=== PATIENT | male | born 1955 | race Caucasian/White ===

== ENCOUNTER 2019-11-03 19:47 | Emergency (ER) | payer SELFPAY ==
[~2019-11-03 19:47] MED LIST: AMIODARONE HCL INJ 150 MG/3 ML VIAL IV ONE; ATROPINE SULFATE INJ 1 MG/10 ML DISP.SYRIN IV ONE; EPINEPHRINE INJ 1 MG/10 ML DISP.SYRIN ONE; LIDOCAINE 2% INJ-PF (100 MG/5 ML) SYRINGE ONE; LIDOCAINE RTU 2 GM/D5W 250 ML (8 MG/ML) PREMIX IV ONE; SODIUM BICARBONATE 8.4% INJ 50 MEQ/50 ML DISP.SYRIN ONE
[2019-11-03] MEDS ORDERED: DOPAMINE HCL/DEXTROSE 5%-WATER 800 MG/250 ML RTUINJ IV ONE (20:32)
[2019-11-03] MEDS ORDERED: HEPARIN SODIUM,PORCINE/D5W 25,000 UNIT/250 ML RTUINJ IV ONE (20:38)
[2019-11-03] MEDS ORDERED: ASPIRIN 300 MG SUPP, RECTAL PR ONE (20:39)
[2019-11-03] MEDS ORDERED: HEPARIN SOD (PORCINE) 1,000 UNIT/ML 10 ML VIAL ONE (20:39)
[2019-11-03] MEDS ORDERED: TENECTEPLASE INJ 50 MG KIT IV ONE (20:39)
[2019-11-03] MEDS ORDERED: EPINEPHRINE INJ 1 MG/10 ML DISP.SYRIN ONE (21:00)
--- NOTE | 2019-11-03 21:39 | ER Document Report ---
ED Resuscitation - General Chief Complaint: Cardiac Arrest Stated Complaint: CARDIAC ARREST Time Seen by Provider: 11/03/19 19:47 Mode of Arrival: Medic Information source: Emergency Med Personnel Notes: This 64-year-old man presents to emergency department with a history of a cardiac arrest at home. Apparently EMS was called for unresponsiveness at home he was found to be in V. fib arrest. Patient received epinephrine x9, defibrillated 3 times, he received 1 amp of bicarb and 300 mg of amiodarone, and ET tube was placed and the IO in right lower extremity. Patient had spontaneous return of pulse, 2 separate occasions upon arrival to the emergency department he was pulseless cardiac electrical activity. CPR was begun. The ET tube was found to be dislodged and nonfunctional, patient was reintubated 7.5 Syriac ET tube placed with direct visualization of vocal cords. CPR was continued the patient received multiple doses of epinephrine and 2 doses of bicarb, spontaneous return of pulse he had multiple episodes of ventricular ectopy with both V. tach and V. fib and was defibrillated on multiple occasions. During a period of stability patient was given TNKase. Contacted the cardiology service [facility], they were unable to assess the patient in transfer stating that they had a acute STEMI in the Therapy Coordinator and does not have a second cath team. Past Medical History - Social History Smoking Status: Current Every Day Smoker Family History: Reviewed & Not Pertinent Review of Systems - Review of Systems -: Yes ROS unobtainable due to patient's medical condition Physical Exam - Vital signs Vitals: Resp Pulse Ox 17 90 L 11/03/19 20:11 11/03/19 20:11 - Notes Notes: PHYSICAL EXAMINATION: Physical Exam: General: Unresponsive 64-year-old man CPR in progress HEENT: NC/AT, pupils dilated and nonreactive Neck: supple, no masses Lungs: Bagged ventilation CVS: CPR in progress with chest compressions Abdomen: Soft, active, no masses Ext: No edema Neuro: Unresponsive Skin: Mottled, cool Course - Re-evaluation Re-evalutation: 11/03/19 21:57 Prolonged resuscitative effort begun at 19:45 and time of 21:22, after the phone call [facility], [facility], [place] was contacted patient continued to have episodic return of pulse, blood pressure 70-60 systolic, patient had been given lidocaine bolus, amiodarone bolus and a drip of both medications were started during the duration of this resuscitative effort. 2 L of normal saline is given and dopamine drip titrated to 30 mcg with little improvement of the blood pressure. Patient continued to have episodic loss of pulse, intermittent CPR, intermittent defibrillations. Supply Chain Logistics Manager at [facility] stated that patient was not stable enough for transfer or to be taken to the Therapy Coordinator. We have given TNKase, heparin, rectal aspirin given ventricular fibrillation arrest, and possible. As we were on the phone discussing possible assembler product transfer, the patient lost his pulse, 6th episode. At that point, 2121 resuscitation efforts were discontinued. I discussed the patient's outcome with his son (Bro Davis) and daughter (Blanca Murrell),they notes that he was outside, they were doing yard work, he w ent to let the dog out and collapsed. The boyfriend, ex- attempted to do CPR, EMS arrived and took over. EMS resuscitative efforts for an hour and 18 minutes. Explained that Mr. Davis's positive with likely an acute coronary event, we have made every effort to save him, resuscitate him without success. Note that he was a 2 pack-a-day smoker, did not go to the doctor, and has had no interest in getting medical care. He does not have a physician ongoing care, I have agreed to complete the certificate. 11/06/19 21:03 - Vital Signs Vital signs: Temp Pulse Resp BP Pulse Ox 17 68/55 L 98 11/03/19 21:15 11/03/19 21:15 11/03/19 21:08 - Laboratory Laboratory results interpreted by me: 11/03/19 19:50 POC Glucose 431 H* - EKG Interpretation by Me Rate: Tachycardia - EKG interpreted by Dr. Ruiz: Atrial fibrillation, rate 119, right bundle branch block, deep ST segment depression abnormalities, no ischemic findings, there is no prior EKG to compare.. Rhythm: Arrthymia Marshall/QRS: RBBB Critical Care Note - Critical Care Note Total time excluding time spent on procedures (mins): 60 - Critical care time spent obtaining history from patient or surrogate, discussions with consultants, development of treatment plan with patient or surrogate, evaluation of patient's response to treatment, examination of patient, ordering and performing treatments and interventions, ordering and review of laboratory studies, re- evaluation of patient's condition, ordering and review of radiographic studies and review of old charts Discharge - Discharge Clinical Impression: Cardiac arrest with ventricular fibrillation Acute myocardial infarction Qualifiers: Myocardial infarction type: unspecified Involved coronary artery: unspecified coronary artery Qualified Code(s): I21.9 - Acute myocardial infarction, unspecified Condition: Critical Disposition:
[2019-11-03 21:51] VITALS: BP 68/55
--- NOTE | 2019-11-04 07:56 | EKG REPORT ---
SEVERITY:- ABNORMAL ECG - ATRIAL FIBRILLATION, V-RATE 106-143 VENTRICULAR PREMATURE COMPLEX RIGHT BUNDLE BRANCH BLOCK ST DEPRESSION, CONSIDER ISCHEMIA, DIFFUSE LDS : Confirmed by: Enzo Munguia 04-Nov-2019 07:56:15
== END 2019-11-04 01:29 | disposition expired ==
LOC: ER 19:47 → EDBD 19:47 → ER 11-04 01:29
DX: I49.01 Ventricular fibrillation (principal); I46.2 Cardiac arrest due to underlying cardiac condition; I21.9 Acute myocardial infarction, unspecified; I47.2 Ventricular tachycardia; I48.91 Unspecified atrial fibrillation; I45.10 Unspecified right bundle-branch block; F17.200 Nicotine dependence, unspecified, uncomplicated
CPT/HCPCS: 31500; 93005; 99291; 92950; 51702; 96375; 96365; 96368; 82962; 94660; 93010; J3101; J0461; J1265; J0171; J1644; J2001 ×2; J3490; J0282